=== PATIENT | female | born 1965 | race Caucasian/White ===

== ENCOUNTER 2021-04-19 11:45 | Emergency (ER) | payer OTHER ==
[~2021-04-19] VITALS: Ht 160 cm; Wt 63.5 kg
[~2021-04-19 11:45] MED LIST: ACEBUTCAFT PO; ACYC800 PO; ALBU90OI; AMIT50; ATENOLOL; AZIT250 PO; BENZ100A; BUPR1 PO; BUTASPCAF; BUTASPCAF PO; CEPH500 PO; CLAR500 PO; CLON.2 PO; CRUTCH3 USE; CYCL10 PO; DIPATR; FLUO20 PO; GUAPSEER PO; HYDACE5 PO; HYDACE7.5; HYDACE7.5 PO; HYDCHLSU; HYDGUAL120 PO; HYDMOR2 PO; HYDMOR4 PO; LORA1 PO; NAPR500 PO; OXYACE5T; OXYACE5T PO; PRED10 PO; PRED20 PO; PROM12.5S; PROM25 PO; PROP120ER; PROP60; RXCYCL10 PO; RXHYDACE PO; SULTRIDS PO; SULTRISS; TEMA15; TEMA30; TOPAMAX; TOPI100; VALA500 PO; [UNRECOGNIZED DRUG - OTHER]; [UNRECOGNIZED DRUG - REMARK]
[2021-04-19 12:54] LABS: BASOPHILS ABSOLUTE AUTO 0.04 K/mm3 (0.00-0.23); BASOPHILS PERCENT AUTO 0 % (0-2); EOSINOPHILS PERCENT AUTO 0 % (0-6); Hematocrit 40.2 % (33.0-51.0); Hemoglobin 12.1 g/dL (11.5-16.0); IMMATURE GRAN ABSOLUTE AUTO 0.03 K/mm3 (0.00-0.10); IMMATURE GRAN PERCENT AUTO 0 % (0-1); LYMPHOCYTES ABSOLUTE AUTO 1.08 K/mm3 (0.84-5.20); LYMPHOCYTES PERCENT AUTO 11 % (21-46); MONOCYTES ABSOLUTE AUTO 0.62 K/mm3 (0.16-1.47); MONOCYTES PERCENT AUTO 7 % (4-13); Mean Corpuscular HGB 24.9 pg (26.0-34.0); Mean Corpuscular HGB Conc 30.1 g/dL (31.5-36.5); Mean Corpuscular Volume 83 fL (80-100); Mean Platelet Volume 9.5 fL (9.1-12.4); NEUTROPHILS ABSOLUTE AUTO 7.75 K/mm3 (1.96-9.15); NEUTROPHILS PERCENT AUTO 82 % (41-73); Platelet Count 287 K/mm3 (150-400); RDW Coefficient Variation 16.4 % (11.7-14.2); RDW Standard Deviation 49.3 fL (35.1-46.3); Red Blood Cell Count 4.85 M/mm3 (3.80-5.20); White Blood Cell Count 9.52 K/mm3 (4.00-11.30)
[2021-04-19 13:16] LABS: Alanine Aminotransfer (ALT/SGP 48 U/L (12-78); Albumin, Blood 2.8 g/dL (3.4-5.0); Albumin/Globulin Ratio 0.8 (0.8-1.8); Alk Phos 92 U/L (50-136); Anion Gap 5 mmol/L (6-16); Aspartate Aminotrans (AST/SGOT 38 U/L (12-37); Bilirubin, Total 0.6 mg/dL (0.1-1.0); Blood Urea Nitrogen 12 mg/dL (8-24); Bun/Creatinine Ratio 21.2 (12.0-20.0); CO2, Blood 28 mmol/L (21-32); Calcium, Blood 8.2 mg/dL (8.5-10.1); Chloride, Blood 106 mmol/L (98-108); Creatinine, Blood 0.57 mg/dL (0.40-1.00); Globulin, Blood 3.6 g/dL (2.2-4.0); Glomerular Filtration Rate >60 (60-); Glucose, Blood 115 mg/dL (70-99); Potassium, Blood 3.6 mmol/L (3.5-5.5); Sodium, Blood 139 mmol/L (136-145); Total Protein, Blood 6.4 g/dL (6.4-8.2); Troponin I <0.015 ng/mL (0.000-0.040)
[2021-04-19] MEDS ORDERED: ALBU90OI INH (15:15)
[2021-04-19] MEDS ORDERED: FLUT1DIS2 INH (15:15)
== END 2021-04-19 15:40 | disposition home or self-care (01) ==
LOC: ER 11:45
PROVIDERS: Physician Assistant
DX: J45.909 Unspecified asthma, uncomplicated (principal); R60.0 Localized edema; L81.8 Other specified disorders of pigmentation; F17.210 Nicotine dependence, cigarettes, uncomplicated; Z88.0 Allergy status to penicillin; Z88.5 Allergy status to narcotic agent
CPT/HCPCS: 36415; 71046; 80053; 83880; 84484; 85025; 93005; 93010; 99284-25; A9270

== ENCOUNTER → 2021-05-07 | Outpatient (CLI) | payer OTHER ==
[~2021-05-07] MED LIST changes: +ALBU90OI INH; +FLUT1DIS2 INH
== END ==
LOC: LAB SHORT 15:30 → LAB 15:30
DX: J02.9 Acute pharyngitis, unspecified (principal)
CPT/HCPCS: 87081

== ENCOUNTER → 2021-06-21 | Outpatient (CLI) | payer OTHER ==
[2021-06-25 14:11] LABS: DOPAMINE, URINE 41 ug/L (Undefined)
[2021-06-25 16:11] LABS: METANEPHRINE, UR 79 ug/L (Undefined)
== END | disposition home or self-care (01) ==
LOC: LAB SHORT 07:45
PROVIDERS: Family Medicine
DX: L98.9 Disorder of the skin and subcutaneous tissue, unspecified (principal); R63.4 Abnormal weight loss; R53.83 Other fatigue; R10.9 Unspecified abdominal pain; R23.8 Other skin changes
CPT/HCPCS: 82384; 83835

== ENCOUNTER → 2021-07-05 | Outpatient (CLI) | payer OTHER | END | disposition home or self-care (01) | LOC: LAB SHORT 08:00 | PROVIDERS: Family Medicine | DX: I15.2 Hypertension secondary to endocrine disorders (principal); L81.4 Other melanin hyperpigmentation; L81.8 Other specified disorders of pigmentation; E27.9 Disorder of adrenal gland, unspecified; R10.9 Unspecified abdominal pain; R23.9 Unspecified skin changes | CPT/HCPCS: 82530 ==

== ENCOUNTER 2022-03-30 06:07 | Day surgery (SDC) | payer OTHER ==
[~2022-03-30] VITALS: Ht 160 cm; Wt 57.4 kg
[2022-03-30] MEDS ORDERED: FLUT1DIS2 (06:41)
[2022-03-30] MEDS ORDERED: TIOT18 (06:41)
[2022-03-30] MEDS ORDERED: IRON18 MG (06:42)
[2022-03-30] MEDS ORDERED: VITAMIN D325 MC3 (06:43)
[2022-03-30] MEDS ORDERED: POTA8 (06:44)
--- NOTE | 2022-03-30 07:38 | NUR ---
03/30/22 0738 Mike Escobar LATE ENTRY: DAUGHTER IN LAW STATES THAT SHE BELIEVES THAT THE PT MAY HAVE TOOK ORAL PAIN MEDS PRIOR TO ARRIVAL BECAUSE SHE SAYS SHE IS ACTING HIGH. SAYS THAT THE HER MOTHER IN LAW (THE PT) WILL DENY IT AND GET MAD IF CONFRONTED. PT DENIES TAKING ORAL PAIN MEDICATION WHEN MEDICATIONS ARE REVIEWED. DR GREY IS NOTIFIED.
--- NOTE | 2022-03-30 08:29 | NUR ---
03/30/22 0829 Gaye Preciaod 5MLS OF NACL MIXED 1:1 5MLS OF LIDOCIANE 2% WITH EPI 1:100,000 TO CREATE A SOLUTION OF 10MLS LIDOCAINE 1% WOTH EPI 1:200,000. PT CAME TO OR WITH SMALL AREA OF OPEN SKIN ON LEFT SIDE OF NASAL. CARE TAKEN TO NOT APPLY ANY ET TUBE TAPE OVER IT.
== END 2022-03-30 10:40 | disposition home or self-care (01) ==
LOC: ORSCSDS 06:07
PROVIDERS: Otolaryngology
PROC: 0GTH0ZZ Resection of Right Thyroid Gland Lobe, Open Approach (ICD-10-PCS; principal; 2022-03-30 07:30)
DX: C73 Malignant neoplasm of thyroid gland (principal); J44.9 Chronic obstructive pulmonary disease, unspecified; I25.10 Atherosclerotic heart disease of native coronary artery without angina pectoris; I10 Essential (primary) hypertension; Z79.51 Long term (current) use of inhaled steroids; Z87.891 Personal history of nicotine dependence
CPT/HCPCS: A9270; J1100; J2250; J2370; J2704; J3010; J7120

== ENCOUNTER 2022-05-18 10:55 | Day surgery (SDC) | payer OTHER ==
[~2022-05-18] VITALS: Ht 160 cm; Wt 57.1 kg
[~2022-05-18 10:55] MED LIST changes: +FLUT1DIS2; +IRON18 MG; +POTA8; +TIOT18; +VITAMIN D325 MC3
[2022-05-18] MEDS ORDERED: FURO40 PO (11:53)
[2022-05-18] MEDS ORDERED: POTCHL20ER PO (11:54)
[2022-05-18] MEDS ORDERED: FERSU300 PO (11:55)
--- NOTE | 2022-05-18 13:15 | NUR ---
05/18/22 1315 BERENICE ANDRADE HYPER PIGMENTATION NOTED TO EXPOSED AREAS OF SKIN ON PTS BODY.
--- NOTE | 2022-05-18 14:28 | NUR ---
05/18/22 1428 Carrie Solorzano PT HAVING PAIN IN THE THROAT, PAIN MEDICATION PROVIDED. ICE CHIPS PROVIDED
--- NOTE | 2022-05-18 16:30 | NUR ---
05/18/22 163Faviola Miller DIFFICULT TO MONITOR SPO2 DUE TO PIGMENTATION AND COLD HANDS, APPLIED WARM BLANKET. PATIENT SUSTAINED 94-96% INITIALLY IN STEPDOWN AND OCCAISONALLY DROPPED TO 93%. AFTER ADJUSTING PULSE OXIMETER PATIENT SUSTAINED 96-100% CONSISTENTLY FOR 20 MINUTES PRIOR TO DISCHARGE. PATIENT REPORTED 5/10 PAIN AND STATED PAIN WAS TOLERABLE AND THAT SHE WAS READY TO GO HOME.
== END 2022-05-18 16:18 | disposition home or self-care (01) ==
LOC: ORSCSDS 10:55
PROVIDERS: Otolaryngology
PROC: 0GTG0ZZ Resection of Left Thyroid Gland Lobe, Open Approach (ICD-10-PCS; principal; 2022-05-18 12:30)
DX: C73 Malignant neoplasm of thyroid gland (principal); F17.210 Nicotine dependence, cigarettes, uncomplicated; J44.9 Chronic obstructive pulmonary disease, unspecified; G40.909 Epilepsy, unspecified, not intractable, without status epilepticus; Z79.899 Other long term (current) drug therapy; Z79.82 Long term (current) use of aspirin
CPT/HCPCS: 88307; J0330; J2250; J2704; J3010

== ENCOUNTER → 2022-06-14 | Outpatient (CLI) | payer OTHER ==
[~2022-06-14] MED LIST changes: +FERSU300 PO; +FURO40 PO; +POTCHL20ER PO
== END | disposition home or self-care (01) ==
LOC: PLD 11:28 → LAB SHORT 11:28
DX: D48.5 Neoplasm of uncertain behavior of skin (principal)
CPT/HCPCS: 88305

== ENCOUNTER → 2022-08-30 | Outpatient (CLI) | payer OTHER ==
[2022-09-04 21:07] LABS: METANEPHRINE, UR 40 ug/L (Undefined)
[2022-09-06 08:10] LABS: DOPAMINE, URINE 31 ug/L (Undefined)
== END | disposition home or self-care (01) ==
LOC: LAB SHORT 07:36 → LAB 07:36
PROVIDERS: Dermatology
DX: L81.8 Other specified disorders of pigmentation (principal); L98.9 Disorder of the skin and subcutaneous tissue, unspecified
CPT/HCPCS: 82384; 83835

== ENCOUNTER 2022-09-02 17:06 | Emergency (ER) | payer OTHER ==
[~2022-09-02] VITALS: Ht 160 cm; Wt 59.0 kg
== END 2022-09-02 21:38 | disposition home or self-care (01) ==
LOC: ER 17:06
DX: S42.252A Displaced fracture of greater tuberosity of left humerus, initial encounter for closed fracture (principal); S42.215A Unspecified nondisplaced fracture of surgical neck of left humerus, initial encounter for closed fracture; W01.0XXA Fall on same level from slipping, tripping and stumbling without subsequent striking against object, initial encounter; F17.210 Nicotine dependence, cigarettes, uncomplicated; Z88.0 Allergy status to penicillin; Z88.5 Allergy status to narcotic agent; Z79.899 Other long term (current) drug therapy
CPT/HCPCS: 73060; 96372; 99283-25; J1885

== ENCOUNTER 2023-10-02 09:38 | Inpatient (IN) | payer OTHER ==
[~2023-10-02] VITALS: Ht 157.5 cm; Wt 60.0 kg
[~2023-10-02 09:38] MED LIST changes: -TIOT18; +TIOT18 INH
[2023-10-02] MEDS ORDERED: NS 1,000 ML IV SCH (10:00)
[2023-10-02] MEDS ORDERED: Albuterol 2.5 MG/3 ML VIAL INH SCH (10:00)
[2023-10-02] MEDS ORDERED: MethylPREDNISolone Sod Succ 125 MG Vial IV ONE (10:00)
[2023-10-02 10:23] LABS: Hematocrit 44.2 % (33.0-51.0); Hemoglobin 15.2 g/dL (11.5-16.0); Mean Corpuscular HGB 32.6 pg (26.0-34.0); Mean Corpuscular HGB Conc 34.4 g/dL (31.5-36.5); Mean Corpuscular Volume 95 fL (80-100); Mean Platelet Volume 9.6 fL (9.1-12.4); Platelet Count 220 K/mm3 (150-400); RDW Coefficient Variation 13.6 % (11.7-14.2); RDW Standard Deviation 47.5 fL (35.1-46.3); Red Blood Cell Count 4.66 M/mm3 (3.80-5.20); White Blood Cell Count 10.28 K/mm3 (4.00-11.30)
[2023-10-02] MEDS ORDERED: ALBU90OI INH (10:24)
[2023-10-02 10:58] LABS: Albumin, Blood 3.3 g/dL (3.4-5.0); Albumin/Globulin Ratio 0.8 (0.8-1.8); Bilirubin, Total 0.3 mg/dL (0.1-1.0); Bun/Creatinine Ratio 13.8 (12.0-20.0); Calcium, Blood 8.3 mg/dL (8.5-10.1); Creatinine, Blood 0.51 mg/dL (0.40-1.00); Globulin, Blood 3.9 g/dL (2.2-4.0); Potassium, Blood 3.7 mmol/L (3.5-5.5); Total Protein, Blood 7.2 g/dL (6.4-8.2)
[2023-10-02 10:59] LABS: BAND PERCENT MAN 4 % (0-8); BASOPHILS PERCENT MAN 0 % (0-2); EOSINOPHILS PERCENT MAN 0 % (0-6); LYMPHOCYTES ABSOLUTE MAN 1.13 K/mm3 (0.84-5.20); LYMPHOCYTES PERCENT MAN 11 % (21-46); MONOCYTES PERCENT MAN 3 % (4-13); NEUTROPHILS ABSOLUTE MAN 8.84 K/mm3 (1.96-9.15); SEG NEUTROPHILS PERCENT MAN 82 % (41-73); TOTAL CELLS COUNTED 100
[2023-10-02] MEDS ORDERED: FURO40 PO (11:02)
[2023-10-02] MEDS ORDERED: LEVSOD100 PO (11:02)
[2023-10-02] MEDS ORDERED: FOLI1 PO (11:03)
[2023-10-02] MEDS ORDERED: CALCIUM CIT 311 EAC7 PO (11:03)
[2023-10-02] MEDS ORDERED: Amitriptyline H25 MG PO (11:03)
[2023-10-02] MEDS ORDERED: VITAMIN D310 MC4 (11:03)
[2023-10-02] MEDS ORDERED: POTA20PAC (11:03)
[2023-10-02 11:33] LABS: Influenza A, PCR NEGATIVE (NEGATIVE); Influenza B, PCR NEGATIVE (NEGATIVE); Resp Syncytial Virus, PCR NEGATIVE (NEGATIVE); SARS-Cov-2 (COVID-19) PCR, MMC NEGATIVE (NEGATIVE)
[2023-10-02] MEDS ORDERED: Ipratropium/Albuterol SulF 2.5-0.5MG/3 ML Amp INH ONE (11:45)
[2023-10-02] MEDS ORDERED: Acetaminophen 325 MG TABLET PO PRN (12:55)
[2023-10-02] MEDS ORDERED: Ondansetron 4 MG TAB PO PRN (12:55)
[2023-10-02] MEDS ORDERED: Azithromycin 500 MG in NS 250 ML IV SCH (13:15)
[2023-10-02] MEDS ORDERED: Mometasone/Formoterol MDI 100/5 mcg 13 GM INH SCH (13:45)
[2023-10-02] MEDS ORDERED: Tiotropium Bromide 2.5 MCG/ACT MIST INHAL (10 ACT/4 GM) INH SCH (13:50)
[2023-10-02 15:14] VITALS: BP 125/79
[2023-10-02] MEDS ORDERED: TIZA4 PO (15:56)
[2023-10-02] MEDS ORDERED: POTCHL20ER PO (15:57)
[2023-10-02] MEDS ORDERED: MethylPREDNISolone Sod Succ 40 MG VIAL IV SCH (16:00)
[2023-10-02 17:37] LABS: Adenovirus Detected (NOT DETECT); Bordetella pertussis Not Detected (NOT DETECT); Chlamydophila pneumoniae Not Detected (NOT DETECT); Coronavirus 229E Not Detected (NOT DETECT); Coronavirus HKU1 Not Detected (NOT DETECT); Coronavirus NL63 Not Detected (NOT DETECT); Coronavirus OC43 Not Detected (NOT DETECT); Human Metapneumovirus Not Detected (NOT DETECT); Human Rhinovirus/Enterovirus Not Detected (NOT DETECT); Influenza A/2009-H1 Not Detected (NOT DETECT); Influenza A/H1 Not Detected (NOT DETECT); Influenza A/H3 Not Detected (NOT DETECT); Influenza B Not Detected (NOT DETECT); Mycoplasma pneumoniae Not Detected (NOT DETECT); Parainfluenza Virus 1 Not Detected (NOT DETECT); Parainfluenza Virus 2 Not Detected (NOT DETECT); Parainfluenza Virus 3 Not Detected (NOT DETECT); Parainfluenza Virus 4 Not Detected (NOT DETECT); Respiratory Syncytial Virus Not Detected (NOT DETECT); SARS-Cov-2 (COVID-19), BioFire Not Detected (NOT DETECT)
[2023-10-02] MEDS ORDERED: VITAMIN D5000 UNIT PO (18:50)
[2023-10-02 19:42] VITALS: BP 122/79
[2023-10-02] MEDS ORDERED: Amitriptyline HCl 25 MG Tab PO SCH (21:00)
[2023-10-02] MEDS ORDERED: GuaiFENesin 600 MG TabCR PO SCH (21:00)
[2023-10-03 02:55] VITALS: BP 125/83
[2023-10-03 04:57] LABS: Hematocrit 40.5 % (33.0-51.0); Mean Corpuscular HGB 32.5 pg (26.0-34.0); Mean Corpuscular HGB Conc 34.6 g/dL (31.5-36.5); Mean Corpuscular Volume 94 fL (80-100); Mean Platelet Volume 9.5 fL (9.1-12.4); Platelet Count 204 K/mm3 (150-400); RDW Coefficient Variation 13.5 % (11.7-14.2); RDW Standard Deviation 47.3 fL (35.1-46.3); Red Blood Cell Count 4.31 M/mm3 (3.80-5.20); White Blood Cell Count 10.06 K/mm3 (4.00-11.30)
[2023-10-03 05:48] LABS: Albumin/Globulin Ratio 0.8 (0.8-1.8); Bilirubin, Total 0.6 mg/dL (0.1-1.0); Bun/Creatinine Ratio 26.4 (12.0-20.0); Calcium, Blood 8.6 mg/dL (8.5-10.1); Creatinine, Blood 0.45 mg/dL (0.40-1.00); Globulin, Blood 3.7 g/dL (2.2-4.0); Magnesium, Blood 1.8 mg/dL (1.6-2.4); Potassium, Blood 3.8 mmol/L (3.5-5.5); Total Protein, Blood 6.7 g/dL (6.4-8.2)
--- NOTE | 2023-10-03 05:50 | NUR ---
SHIFT SUMMARY PT IS A&OX4, PLEASANT AND COOPERATIVE WITH CARES. VSS ON 2L NC. DENIES PAIN. SLEEPING INBETWEEN CARES. TOLERATING A REGULAR DIET. UP INDEPENDENTLY IN ROOM/BR. VOIDING IN TOILET. BED IN LOWEST POSITION, CALL LIGHT WITHIN REACH.
[2023-10-03] MEDS ORDERED: Levothyroxine Sodium 0.1 MG Tab PO SCH (06:00)
[2023-10-03 06:01] LABS: BAND PERCENT MAN 1 % (0-8); BASOPHILS PERCENT MAN 0 % (0-2); EOSINOPHILS PERCENT MAN 0 % (0-6); LYMPHOCYTES PERCENT MAN 9 % (21-46); MONOCYTES PERCENT MAN 5 % (4-13); NEUTROPHILS ABSOLUTE MAN 8.65 K/mm3 (1.96-9.15); SEG NEUTROPHILS PERCENT MAN 85 % (41-73); TOTAL CELLS COUNTED 100
[2023-10-03 07:36] VITALS: BP 137/87
[2023-10-03] MEDS ORDERED: Calcium Citrate 315 MG/Vitamin D 250 IU Tab PO SCH (09:00)
[2023-10-03] MEDS ORDERED: Furosemide 40 MG Tab PO SCH (09:00)
[2023-10-03] MEDS ORDERED: Cholecalciferol 1000 Unit Tablet (=25MCG) PO SCH (09:00)
[2023-10-03] MEDS ORDERED: Folic Acid 1 MG TAB PO SCH (09:00)
[2023-10-03] MEDS ORDERED: Enoxaparin 40 MG/0.4 ML SYR SC SCH (09:00)
[2023-10-03 15:12] VITALS: BP 135/83
--- NOTE | 2023-10-03 16:39 | NUR ---
PT VSS, ALERT & ORIENTED TIMES FOUR. RONCHI NOTED THROUGHOUT LUNG GOMEZ. HEART SOUNDS STRONG S1 AND S2. EDEMA NOTED IN FEET BILATERALLY. TX ANTIBIOTICS, LASIX, RADIAL AND PEDIAL PULSES 3+. AMBULATES WITH MINIMUIM ASSISTANCE, RIGHT KNEE IS PAINFUL ON MOVEMENT.
[2023-10-03 19:29] VITALS: BP 140/85
[2023-10-04 03:38] VITALS: BP 130/89
--- NOTE | 2023-10-04 05:34 | NUR ---
Patient alert and oriented, VSS, tolerating room air appropriately with oxygen at bedside available for use. Patient ambulating to restroom for needs independently. Patient provided with incentive spirometer and educated on use.
[2023-10-04 07:41] VITALS: BP 130/85
[2023-10-04] MEDS ORDERED: PRED20 PO (14:30)
[2023-10-04] MEDS ORDERED: GUAI600T33 PO (14:30)
--- NOTE | 2023-10-04 15:02 | NUR ---
DISCHARGE SUMMARY PT AXO, PLEASANT AND COOPERATIVE WITH CARE. PT LEFT THE ROOM AT 1457 VIA WHEELCHAIR WITH WHEEL SHOP SUPERVISOR ESCORT. IV DC'D PRIOR TO DC AND BELONGINGS RETURNED. ALL DISCHARGE INSTRUCTIONS DISCUSSED, ALL QUESTIONS ANSWERED. PT AGREES TO TAKE MEDICATIONS PRESCRIBED AND TO FOLLOW UP WITH PCP.
== END 2023-10-04 15:05 | disposition home or self-care (01) | DRG 189 ==
LOC: ER 09:38 → MEDS 09:39 → ENPENDDIS 10-04 11:22 → MEDS 10-04 15:05
PROVIDERS: Emergency Medicine; Physician Assistant; ADMIT Internal Medicine
DX: J96.01 Acute respiratory failure with hypoxia (principal); J44.1 Chronic obstructive pulmonary disease with (acute) exacerbation; J44.0 Chronic obstructive pulmonary disease with (acute) lower respiratory infection; J20.8 Acute bronchitis due to other specified organisms; B97.0 Adenovirus as the cause of diseases classified elsewhere; E89.0 Postprocedural hypothyroidism; E83.51 Hypocalcemia; M81.0 Age-related osteoporosis without current pathological fracture; G40.909 Epilepsy, unspecified, not intractable, without status epilepticus; Z85.850 Personal history of malignant neoplasm of thyroid; Z90.49 Acquired absence of other specified parts of digestive tract; Z90.710 Acquired absence of both cervix and uterus; Z87.891 Personal history of nicotine dependence; Z88.5 Allergy status to narcotic agent; Z88.0 Allergy status to penicillin; Z79.51 Long term (current) use of inhaled steroids; Z79.01 Long term (current) use of anticoagulants; Z79.890 Hormone replacement therapy; Z98.890 Other specified postprocedural states
CPT/HCPCS: 0202U; 0241U; 36415; 71046; 80053; 83735; 85025; 93005; 93010; 94640; 94644; 94664; 94760; 96361; 96365; 96366; 96372; 96375; 96376; 99285-25; A9270; G0378; J0456; J1650; J2920; J2930; J7030; J7050

== ENCOUNTER 2024-09-16 07:09 | Day surgery (SDC) | payer OTHER ==
[2024-09-16] VITALS (12 sets, daily range): BP systolic 104–139; BP diastolic 72–91
[~2024-09-16] VITALS: Ht 160 cm; Wt 61.6 kg
[~2024-09-16 07:09] MED LIST changes: +Amitriptyline H25 MG PO; +CALCIUM CIT 311 EAC7 PO; +FOLI1 PO; +GUAI600T33 PO; +LEVSOD100 PO; +POTA20PAC; +SPIRIVA RESPIMAT4 G3 INH; -TIOT18 INH; +TIZA4 PO; +VITAMIN D310 MC4; +VITAMIN D5000 UNIT PO
[2024-09-16] MEDS ORDERED: CeFAZolin Sodium 2,000 MG in NS 100 ML IV SCH ×2 (07:40→17:00)
[2024-09-16] MEDS ORDERED: Lactated Ringer's 1,000 ML IV SCH ×2 (07:40→08:55)
[2024-09-16] MEDS ORDERED: Ropivacaine 0.5% HCl/Pf 123.125 MG,EPINEPHrine HCL 0.25 MG,Ketorolac Tromethamine 15 MG... INFIL SCH (07:40)
[2024-09-16] MEDS ORDERED: Chlorhexidine Mouth Care 15 ML UDC MT SCH (07:40)
[2024-09-16] MEDS ORDERED: OxyCODONE HCL 10 MG TABCR PO SCH (07:40)
[2024-09-16] MEDS ORDERED: Acetaminophen 500 MG Tab PO SCH ×2 (07:40→16:00)
[2024-09-16] MEDS ORDERED: Tranexamic Acid 100 ML IV SCH (07:45)
--- NOTE | 2024-09-16 07:52 | NUR ---
Ambulatory in Day SurgeryPre-Op teaching done. Pt verbalizes understanding. History, Chart, Medications and Allergies reviewed before start of procedure.Patient confirms NPO status and agrees with scheduled surgery. Patient reports completing Chlorhexadine shower X2 prior to admission to hospital.
[2024-09-16] MEDS ORDERED: Bisacodyl 10 MG Supp PR PRN (08:15)
[2024-09-16] MEDS ORDERED: TiZANidine HCl 4 MG Tab PO PRN (08:15)
[2024-09-16] MEDS ORDERED: HYDROmorphone HCl/Pf 1MG SYR IV PRN (08:15)
[2024-09-16] MEDS ORDERED: Tiotropium Bromide 2.5 MCG/ACT MIST INHAL (10 ACT/4 GM) INH SCH (08:15)
[2024-09-16] MEDS ORDERED: CeFAZolin Sodium 2,000 MG VIAL ONE (08:18)
[2024-09-16] MEDS ORDERED: Magnesium Hydroxide Conc 10 ML UDC PO PRN (08:20)
[2024-09-16] MEDS ORDERED: Metoclopramide HCl 5MG / ML 2ML Vial IV PRN (08:20)
[2024-09-16] MEDS ORDERED: DiphenhydrAMINE HCL 25 MG Cap PO PRN (08:20)
[2024-09-16] MEDS ORDERED: Ondansetron HCl 2 MG / ML 2ML Vial IV PRN (08:20)
[2024-09-16] MEDS ORDERED: OxyCODONE HCL 5 MG TAB PO PRN ×2 (08:25)
[2024-09-16] MEDS ORDERED: propofoL 40 ML IV ONE (08:25)
[2024-09-16] MEDS ORDERED: FentaNYL Citrate 50 MCG/ML 2 ML Injection ONE (08:25)
[2024-09-16] MEDS ORDERED: Promethazine HCl 25 MG Tab PO PRN (08:25)
[2024-09-16] MEDS ORDERED: Midazolam HCl 1MG / ML 2ML Vial IV ONE (08:30)
[2024-09-16] MEDS ORDERED: Albuterol HFA200 ACT/6.7 GM INH INH PRN (08:35)
[2024-09-16] MEDS ORDERED: Mometasone/Formoterol MDI 100/5 mcg 13 GM INH SCH (08:35)
[2024-09-16] MEDS ORDERED: Furosemide 20 MG Tab PO SCH (09:00)
[2024-09-16] MEDS ORDERED: Potassium Chloride 20 MEQ TabCR PO SCH (09:00)
[2024-09-16] MEDS ORDERED: Docusate Sodium 100 MG Cap PO SCH (09:00)
[2024-09-16] MEDS ORDERED: Phenylephrine HCl 100 MCG/ML-NS 10MLSYR (1MG/10ML) ONE (09:26)
[2024-09-16] MEDS ORDERED: propofoL 20 ML IV ONE ×2 (09:43→10:07)
--- NOTE | 2024-09-16 11:33 | NUR ---
ARRIVAL TO UNIT AFTER RECEIVING REPORT FROM BLOOD DONOR RECRUITER, PATIENT TRANSFERRED TO UNIT VIA BED AT APPROX 1120. PATIENT ALERT - COMMUNICATING NEEDS EFFECTIVELY. S/P R TKA W/ SPINAL - REPORTS MINIMAL SENSATION N/T TO BLE. ABLE TO WIGGLE TOES ON L FOOT. CAP REFILL <3 SECONDS. PPP. VSS. ON ROOM AIR, SATs >90%. DENIES PAIN. DENIES N/V - SMALL SNACKS AND WATER WITHIN REACH. AQUACEL DRESSING X2 TO R KNEE - C/D/I. CALL LIGHT IN REACH.
[2024-09-16] MEDS ORDERED: Ketorolac Tromethamine 15mg Vial IV SCH (12:00)
[2024-09-16] MEDS ORDERED: ACET500 PO (16:07)
[2024-09-16] MEDS ORDERED: ASPI81CH PO (16:16)
[2024-09-16] MEDS ORDERED: DOCU100 PO (16:17)
[2024-09-16] MEDS ORDERED: OXAYDO5 M1 PO (16:18)
--- NOTE | 2024-09-16 16:42 | NUR ---
DISCHARGE NOTE NO ACUTE CHANGES SINCE ARRIVAL TO UNIT. PATIENT REMAINS ALERT - COMMUNICATES NEEDS EFFECTIVELY. VSS. S/P R TKA - AMBULATING WITH SBA FWW GB. WORKED WITH PHYSICAL THERAPY THIS AFTERNOON. PAIN MANAGED WITH PRESCRIBED THERAPY. TOLERATING PO INTAKE. VOIDING. IV REMOVED. WRITTEN AND VERBAL EDUCATION PROVIDED TO PATIENT AND HER FRIEND - BOTH STATE UNDERSTANDING. PERSONAL BELONGINGS WITH PATIENT. PATIENT TRANSFERRED OFF UNIT VIA AT APPROX 1640.
[2024-09-16] MEDS ORDERED: Amitriptyline HCl 25 MG Tab PO SCH (21:00)
[2024-09-17] MEDS ORDERED: Levothyroxine Sodium 0.1 MG Tab PO SCH (06:00)
[2024-09-17] MEDS ORDERED: Aspirin 81 MG Chew PO SCH (09:00)
== END 2024-09-16 16:40 | disposition home or self-care (01) ==
LOC: ORSCMMR 07:09 → ORD 08:30 → ORSCMMR 08:30 → SURS 11:16 → ORSCMMR 16:40
PROVIDERS: Orthopaedic Surgery
PROC: 0SRC0JA Replacement of Right Knee Joint with Synthetic Substitute, Uncemented, Open Approach (ICD-10-PCS; principal; 2024-09-16 08:30)
PROC: 8E0Y0CZ Robotic Assisted Procedure of Lower Extremity, Open Approach (ICD-10-PCS; principal; 2024-09-16 08:30)
DX: M17.11 Unilateral primary osteoarthritis, right knee (principal); I10 Essential (primary) hypertension; J44.9 Chronic obstructive pulmonary disease, unspecified; Z87.891 Personal history of nicotine dependence; E03.9 Hypothyroidism, unspecified; K21.9 Gastro-esophageal reflux disease without esophagitis; G40.909 Epilepsy, unspecified, not intractable, without status epilepticus; Z79.899 Other long term (current) drug therapy; Z79.82 Long term (current) use of aspirin
CPT/HCPCS: 27447; 0055T; 73560-RT; 97116; 97162; 97530; A9270; C1713; C1776; J0171; J0690; J0735; J1885; J2250; J2371; J2704; J2795; J3010; J7120

== ENCOUNTER 2024-12-26 10:00 | Day surgery (SDC) | payer OTHER ==
[~2024-12-26] VITALS: Ht 157.5 cm; Wt 58.8 kg
[~2024-12-26 10:00] MED LIST changes: +ACET500 PO; +ASPI81CH PO; +Acetaminophen650 M1; +DOCU100 PO; +Lidocaine HCl 2% 10 ML SDA ONE; +NS 500 ML IV ONE; +OXAYDO5 M1 PO
[2024-12-26] MEDS ORDERED: CeFAZolin Sodium 2,000 MG VIAL ONE (10:26)
[2024-12-26] MEDS ORDERED: NS 500 ML IV ONE (11:01)
[2024-12-26] MEDS ORDERED: Lidocaine 1%-Epineph 1:100000 20 ML MDV INJ ONE (12:47)
[2024-12-26] MEDS ORDERED: Ondansetron HCl 2 MG / ML 2ML Vial ONE (12:49)
[2024-12-26] MEDS ORDERED: HYDROcodone 5-APAP 325 TAB ONE (13:10)
[2024-12-26 13:22] VITALS: BP 130/71
--- NOTE | 2024-12-26 13:48 | NUR ---
12/26/24 1348 BooIsma shaw PT REPORTS PAIN MEDICATIONS IS STARTING TO BE BENEFICIAL AND WOULD LIKE TO D/C HOME.
== END 2024-12-26 13:47 | disposition home or self-care (01) ==
LOC: ORSCSDS 10:00
PROVIDERS: Orthopaedic Surgery
PROC: 0LN80ZZ Release Left Hand Tendon, Open Approach (ICD-10-PCS; principal; 2024-12-26 12:30)
PROC: 01N54ZZ Release Median Nerve, Percutaneous Endoscopic Approach (ICD-10-PCS; principal; 2024-12-26 12:30)
DX: M65.332 Trigger finger, left middle finger (principal); G56.02 Carpal tunnel syndrome, left upper limb; E03.9 Hypothyroidism, unspecified; J44.9 Chronic obstructive pulmonary disease, unspecified; Z79.899 Other long term (current) drug therapy; Z87.891 Personal history of nicotine dependence
CPT/HCPCS: A9270; J0690; J2003; J2405; J2704; J7040

== ENCOUNTER 2025-02-10 05:57 | Day surgery (SDC) | payer OTHER ==
[2025-02-10] VITALS (14 sets, daily range): BP systolic 104–129; BP diastolic 59–74
[~2025-02-10] VITALS: Ht 160 cm; Wt 60.6 kg
[~2025-02-10 05:57] MED LIST changes: +ALBUTEROL0.63 MG/3 INH; +CALCIUM 600 MG1 EA17 PO; +CALCIUM CITRAT250 MG PO; -Lidocaine HCl 2% 10 ML SDA ONE; -NS 500 ML IV ONE; +Vitamin B-12100 MCG PO
[2025-02-10] MEDS ORDERED: CeFAZolin Sodium 2,000 MG in NS 100 ML IV SCH ×2 (06:15→16:00)
[2025-02-10] MEDS ORDERED: Chlorhexidine Mouth Care 15 ML UDC MT SCH (06:15)
[2025-02-10] MEDS ORDERED: Ropivacaine 0.5% HCl/Pf 123.125 MG,EPINEPHrine HCL 0.25 MG,Ketorolac Tromethamine 15 MG... INFIL SCH (06:15)
[2025-02-10] MEDS ORDERED: Tranexamic Acid 100 ML IV SCH (06:15)
--- NOTE | 2025-02-10 06:39 | NUR ---
Ambulatory in Day Surgery History, Chart, Medications and Allergies reviewed before start of procedure. Pre-Op teaching done. Pt verbalizes understanding. Patient States Post-Procedure ride home has been arranged.
[2025-02-10] MEDS ORDERED: Midazolam HCl 1MG / ML 2ML Vial ONE (07:04)
[2025-02-10] MEDS ORDERED: FentaNYL Citrate 50 MCG/ML 2 ML Injection ONE (07:04)
[2025-02-10] MEDS ORDERED: Tiotropium Bromide 2.5 MCG/ACT MIST INHAL (10 ACT/4 GM) INH SCH (07:50)
[2025-02-10] MEDS ORDERED: Magnesium Hydroxide Conc 10 ML UDC PO PRN (08:00)
[2025-02-10] MEDS ORDERED: Metoclopramide HCl 5MG / ML 2ML Vial IV PRN (08:05)
[2025-02-10] MEDS ORDERED: Ondansetron HCl 2 MG / ML 2ML Vial IV PRN ×2 (08:05→08:30)
[2025-02-10] MEDS ORDERED: HYDROmorphone HCl/Pf 1MG SYR IV PRN ×3 (08:10→08:35)
--- NOTE | 2025-02-10 08:21 | NUR ---
02/10/25 0821 Tristin,Kasey SPINAL BLOCK COMPLETED BY UPON ENTRY TO OR.
[2025-02-10] MEDS ORDERED: FentaNYL Citrate 50 MCG/ML 2 ML Injection IV PRN ×2 (08:30→08:35)
[2025-02-10] MEDS ORDERED: Dexamethasone Sod Phos 10 MG/ML 1ML VIAL ONE (08:32)
[2025-02-10] MEDS ORDERED: Ondansetron HCl 2 MG / ML 2ML Vial ONE (08:32)
--- NOTE | 2025-02-10 10:20 | NUR ---
POST OP ARRIVAL TO SURGICAL UNIT VIA HOSPITAL BED. ALERT, ORIENTED, & PLEASANT. ASSESSMENT CHARTED. DENIES PAIN. DENIES N/V SO SNACKS & DRINKS GIVEN. CRYOTHERAPY IN PLACE.
[2025-02-10] MEDS ORDERED: Albuterol HFA200 ACT/6.7 GM INH INH PRN (11:45)
[2025-02-10] MEDS ORDERED: ALBUTEROL 1.25 MG/3 ML INH PRN (11:50)
[2025-02-10] MEDS ORDERED: Formoterol/Mometasone MDI 5/100 mcg 13 GM INH SCH (11:50)
[2025-02-10] MEDS ORDERED: Ketorolac Tromethamine 15mg Vial IV SCH (12:00)
[2025-02-10] MEDS ORDERED: DOCU100 PO (13:25)
[2025-02-10] MEDS ORDERED: ACET500 PO (13:26)
[2025-02-10] MEDS ORDERED: OXYC5 PO (13:26)
--- NOTE | 2025-02-10 13:47 | NUR ---
DISCHARGE PT HAS DECLINED WORKING w/ THERAPY. AMBULATED w/ THIS RN. PAIN WELL CONTROLLED. EATING, DRINKING, & VOIDED x 1. POLAR PACK SENT w/ PT. ESCORTED OUT VIA W/C.
== END 2025-02-10 13:54 | disposition home or self-care (01) ==
LOC: ORSCMMR 05:57 → ORD 07:30 → ORSCMMR 07:30 → SURS 10:15 → ORSCMMR 13:54
PROVIDERS: Orthopaedic Surgery
PROC: 0SRD0JA Replacement of Left Knee Joint with Synthetic Substitute, Uncemented, Open Approach (ICD-10-PCS; principal; 2025-02-10 07:30)
PROC: 8E0Y0CZ Robotic Assisted Procedure of Lower Extremity, Open Approach (ICD-10-PCS; principal; 2025-02-10 07:30)
DX: M17.12 Unilateral primary osteoarthritis, left knee (principal); Z96.651 Presence of right artificial knee joint; J44.9 Chronic obstructive pulmonary disease, unspecified; Z87.891 Personal history of nicotine dependence; K21.9 Gastro-esophageal reflux disease without esophagitis; G40.909 Epilepsy, unspecified, not intractable, without status epilepticus; E07.9 Disorder of thyroid, unspecified; Z79.899 Other long term (current) drug therapy
CPT/HCPCS: 27447; 0055T; 73560-LT; A9270; C1713; C1776; J0166; J0690; J0735; J1100; J1885; J2250; J2405; J2704; J2795; J3010; J7120